=== PATIENT | female | born 1965 | race Caucasian/White ===

== ENCOUNTER 2018-02-07 19:47 | Observation (INO) | payer OTHER, SELFPAY ==
[2018-02-07] MEDS ORDERED: ASPIRIN 81 MG CHEWABLE TABLET ONE (20:17)
[2018-02-07] MEDS ORDERED: FENTANYL CITR 100 MCG/2 ML ONE (20:17)
[2018-02-07] MEDS ORDERED: ONDANSETRON 4 MG/2 ML VIAL ONE (20:17)
[2018-02-07 20:33] LABS: Absolute Lymphocytes (CBC) 2.1 K/uL (0.7-4.9); Absolute Monocytes 0.5 K/uL (0.1-1.3); Absolute Neutrophil 6.7 K/uL (1.8-8.0); Basophils % 0.3 % (0-1.3); Eosinophils % 0.7 % (0-4.4); Hematocrit 41.8 % (36.0-45.0); Lymphocytes % 22.3 % (15.3-44.8); MCH 30.7 pg (27.0-35.0); MCV 91.8 fL (80-100); MPV 8.3 fL (7.6-11.3); Monocytes % 5.3 % (3.3-12.3); RBC Red Blood Cell Count 4.55 M/uL (3.86-4.86)
[2018-02-07 20:43] LABS: Protime INR 1.03
[2018-02-07 20:48] LABS: ALT/SGPT 48 U/L (12-78); AST/SGOT 44 U/L (15-37); Albumin 3.7 g/dL (3.4-5.0); Alkaline Phosphatase 104 U/L (45-117); BUN Blood Urea Nitrogen 15 mg/dL (7-18); Bicarbonate 26 mmol/L (21-32); Bilirubin Direct 0.1 mg/dL (0-0.2); Bilirubin Total 0.5 mg/dL (0.2-1.0); Glucose Level 107 mg/dL (74-106); NT PRO-BNP 169 pg/mL (<125); Potassium 3.1 mmol/L (3.5-5.1); Sodium Level 143 mmol/L (136-145); Troponin (Emerg Dept Use Only) < 0.02 ng/mL (0.0-0.045)
--- NOTE | 2018-02-07 20:53 | EDPHYS ---
Physician Documentation [facility] Name: Audra Limon Age: 52 yrs Sex: Female : 1965 Arrival Date: 02/07/2018 Time: 19:48 Bed 20 Private MD: ED Physician Neeraj Oleary HPI: 02/07 20:11 This 52 yrs old Female presents to ER via Ambulatory with complaints of Chest jr8 Pain. 20:11 The patient or guardian reports chest pain that is located primarily in the substernal jr8 area. Onset: acutely, today, at 18:30. The pain radiates to the right arm, Associated signs and symptoms: Pertinent positives: diaphoresis. The chest pain is described as a pressure. Duration: The patient or guardian reports a single episode. Modifying factors: The symptoms are alleviated by NTG, X3. Severity of pain: At its worst the pain was moderate in the emergency department the pain is unchanged. The patient has not experienced similar symptoms in the past. The patient has not recently seen a physician. Has history of Angina. Usually relieved with her nitroglycerin. Has not had to take any in quite some time. Stated that she has already taken three tonight with this episode. Will help somewhat but not completely relieved and pain comes back soon after . SANE RN: 19:50 LMP N/A - Post-menopause fc Historical: - Allergies: 20:02 PENICILLINS; fc - Home Meds: 20:02 atorvastatin 20 mg oral tab 1 tab once daily [Active]; losartan 50 mg oral tab 1 tab 2 fc times per day [Active]; buspirone 7.5 mg Oral tab 1 tab 2 times per day [Active]; pantoprazole 40 mg oral TbEC 1 tab once daily [Active]; Lasix 40 mg oral tab 1 tab once daily [Active]; metformin 500 mg Oral tab 1 tab 2 times per day [Active]; Vitamin D Oral 5000 unit daily [Active]; aspirin 81 mg Oral TbEC 1 tab once daily [Active]; 20:03 nitroglycerin 0.4 mg SL subl 1 tab as needed [Active]; fc - PMHx: 20:02 Depression; GERD; High Cholesterol; Hypertension; Diabetes - NIDDM; CAD; fc - PSHx: 20:02 Tubal ligation; Bladder suspension; Cholecystectomy; neck surg; fc - Immunization history:: Last tetanus immunization: up to date. - Social history:: Smoking status: Patient uses tobacco products, smokes one-half pack cigarettes per day. - Ebola Screening: : Patient negative for fever greater than or equal to 101.5 degrees Fahrenheit, and additional compatible Ebola Virus Disease symptoms Patient denies exposure to infectious person Patient denies travel to an Ebola-affected area in the 21 days before illness onset. ROS: 20:11 Eyes: Negative for injury, pain, redness, and discharge, ENT: Negative for injury, jr8 pain, and discharge, Neck: Negative for injury, pain, and swelling, Respiratory: Negative for shortness of breath, cough, wheezing, and pleuritic chest pain, Abdomen/GI: Negative for abdominal pain, nausea, vomiting, diarrhea, and constipation, Back: Negative for injury and pain, MS/Extremity: Negative for injury and deformity, Skin: Negative for injury, rash, and discoloration, Neuro: Negative for headache, weakness, numbness, tingling, and seizure. 20:11 Cardiovascular: Positive for chest pain, Negative for edema, orthopnea, palpitations, paroxysmal nocturnal dyspnea. Exam: 20:11 Eyes: Pupils equal round and reactive to light, extra-ocular motions intact. Lids and jr8 lashes normal. Conjunctiva and sclera are non-icteric and not injected. Cornea within normal limits. Periorbital areas with no swelling, redness, or edema. ENT: Nares patent. No nasal discharge, no septal abnormalities noted. Tympanic membranes are normal and external auditory canals are clear. Oropharynx with no redness, swelling, or masses, exudates, or evidence of obstruction, uvula midline. Mucous membranes moist. Neck: Trachea midline, no thyromegaly or masses palpated, and no cervical lymphadenopathy. Supple, full range of motion without nuchal rigidity, or vertebral point tenderness. No Meningismus. Chest/axilla: Normal chest wall appearance and motion. Nontender with no deformity. No lesions are appreciated. Cardiovascular: Regular rate and rhythm with a normal S1 and S2. No gallops, murmurs, or rubs. Normal PMI, no JVD. No pulse deficits. Respiratory: Lungs have equal breath sounds bilaterally, clear to auscultation and percussion. No rales, rhonchi or wheezes noted. No increased work of breathing, no retractions or nasal flaring. Abdomen/GI: Soft, non-tender, with normal bowel sounds. No distension or tympany. No guarding or rebound. No evidence of tenderness throughout. Back: No spinal tenderness. No costovertebral tenderness. Full range of motion. Skin: Warm, dry with normal turgor. Normal color with no rashes, no lesions, and no evidence of cellulitis. MS/ Extremity: Pulses equal, no cyanosis. Neurovascular intact. Full, normal range of motion. Neuro: Awake and alert, GCS 15, oriented to person, place, time, and situation. Cranial nerves II-XII grossly intact. Motor strength 5/5 in all extremities. Sensory grossly intact. Cerebellar exam normal. Normal gait. 20:56 ECG was reviewed by the Attending Physician. jr8 Vital Signs: 19:50 BP 139 / 84; Pulse 72; Resp 18; Temp 98.4(O); Pulse Ox 96% on R/A; Weight 95.25 kg (R); fc Height 5 ft. 2 in. (157.48 cm) (R); Pain 5/10; 20:22 BP 130 / 79; Pulse 72; Resp 15; Pulse Ox 93% on R/A; rv 21:55 BP 118 / 74; Pulse 72; Resp 14; Pulse Ox 92% on R/A; rv 19:50 Body Mass Index 38.41 (95.25 kg, 157.48 cm) fc MDM: 19:57 Patient medically screened. jr8 20:51 HEART Score: History: Moderately Suspicious (1), ECG: Normal (0), Age: > 45 and < 65 jr8 years (1), Risk Factors: > or = 3 Risk factors for atherosclerotic disease (2), [Hypercholesterolemia] [Hypertension] [DM] [+ Family HX] Troponin: < or = 1 x Normal Limit (0). The patient was given aspirin in the Emergency Department. Data reviewed: vital signs, nurses notes, lab test result(s), EKG, radiologic studies, plain films. Data interpreted: Pulse oximetry: on room air is 94 %. Interpretation: acceptable. Counseling: I had a detailed discussion with the patient and/or guardian regarding: the historical points, exam findings, and any diagnostic results supporting the discharge/admit diagnosis, lab results, radiology results, the need for further work-up and treatment in the hospital. Physician consultation: Marisel Rodriguez MD was called at 20:52, was contacted at 20:52, regarding admission, to the telemetry unit. consult, patient's condition, and will see patient. 02/07 20:09 Order name: Basic Metabolic Panel; Complete Time: 20:49 02/07 20:09 Order name: CBC with Diff; Complete Time: 20:43 02/07 20:09 Order name: LFT's; Complete Time: 20:49 02/07 20:09 Order name: Magnesium; Complete Time: 20:49 02/07 20:09 Order name: NT PRO-BNP; Complete Time: 20:49 02/07 20:09 Order name: PT-INR; Complete Time: 20:43 02/07 20:09 Order name: Troponin (emerg Dept Use Only); Complete Time: 20:49 02/07 20:09 Order name: XRAY Chest (1 view); Complete Time: 20:55 02/07 20:09 Order name: EKG; Complete Time: 20:10 02/07 20:09 Order name: Cardiac monitoring; Complete Time: 20:09 02/07 20:09 Order name: EKG - Nurse/Tech; Complete Time: 20:09 02/07 20:09 Order name: IV Saline Lock; Complete Time: 20:10 02/07 20:09 Order name: Labs collected and sent; Complete Time: 20:10 02/07 20:09 Order name: O2 Per Protocol; Complete Time: 20:10 02/07 20:09 Order name: O2 Sat Monitoring; Complete Time: 20:10 EC:56 Rate is 63 beats/min. Rhythm is regular, Normal Sinus Rhythm. QRS [place] is Normal. [place] jr8 interval is normal at 160 msec. QRS interval is normal at 82 msec. QT interval is normal at 429 msec. No Q waves. T waves are Normal. No ST changes noted. Clinical impression: Normal ECG. Interpreted by me. Reviewed by me. Administered Medications: 20:19 Drug: Zofran 4 mg Route: IVP; Site: left antecubital; rv 21:44 Follow up: Response: No adverse reaction rv 20:20 Drug: Aspirin Chewable Tablet 324 mg Route: PO; rv 21:44 Follow up: Response: No adverse reaction rv 20:20 Drug: fentaNYL (PF) 50 mcg Route: IVP; Site: left antecubital; rv 21:44 Follow up: Response: No adverse reaction rv 21:07 Drug: Potassium Chloride 40 mEq Route: PO; rv 21:44 Follow up: Response: No adverse reaction rv 21:07 Drug: Nitroglycerin Ointment 2 % 1 inches Route: Transdermal; Site: anterior chest wall;rv Disposition: 02/08 00:15 Co-signature as Attending Physician, Neeraj Oleary MD. jayne Disposition: 02/07/18 20:52 Hospitalization ordered by Marisel Rodriguez for Observation. Preliminary diagnosis is Chest pain, unspecified. - Bed requested for Telemetry/MedSurg (observation). - Status is Observation. rv - Condition is Stable. - Problem is new. - Symptoms have improved. UTI on Admission? No Signatures: Dispatcher [employer] EDMS Neeraj Oleary MD MD pkTia Howell RN RN Estuardo Dupree PA PA jr8 Festus Siddiqui RN RN rv Corrections: (The following items were deleted from the chart) 02/07 21:27 20:52 Hospitalization Ordered by Marisel Rodriguez MD for Observation. Preliminary jr8 diagnosis is Chest pain, unspecified. Bed requested for Telemetry/MedSurg (observation). Status is Observation. Condition is Stable. Problem is new. Symptoms have improved. UTI on Admission? No. jr8 22:14 21:27 02/07/2018 20:52 Hospitalization Ordered by Marisel Rodriguez MD for Observation. rv Preliminary diagnosis is Chest pain, unspecified. Bed requested for Telemetry/MedSurg (observation). Status is Observation. Condition is Stable. Problem is new. Symptoms have improved. UTI on Admission? No. jr8
--- NOTE | 2018-02-07 20:53 | ER ---
Nurse's Notes [facility] Name: Audra Limon Age: 52 yrs Sex: Female : 1965 Arrival Date: 02/07/2018 Time: 19:48 Bed 20 Private MD: Diagnosis: Chest pain, unspecified Presentation: 02/07 19:50 Presenting complaint: Patient states: that she is having right sided chest pain with fc some shortness of breath. Denies any nausea or vomiting. also is on Cipro for UTI. Transition of care: patient was not received from another setting of care. Onset of symptoms was February 07, 2018 at 19:30. Risk Assessment: Do you want to hurt yourself or someone else? Patient reports no desire to harm self or others. Initial Sepsis Screen: Does the patient meet any 2 criteria? No. Patient's initial sepsis screen is negative. Does the patient have a suspected source of infection? No. Patient's initial sepsis screen is negative. Care prior to arrival: Medication(s) given: Nitroglycerin, 0.4 mg SL x 3. 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: 19:50 LMP N/A - Post-menopause fc Historical: - Allergies: 20:02 PENICILLINS; fc - Home Meds: 20:02 atorvastatin 20 mg oral tab 1 tab once daily [Active]; losartan 50 mg oral tab 1 tab 2 fc times per day [Active]; buspirone 7.5 mg Oral tab 1 tab 2 times per day [Active]; pantoprazole 40 mg oral TbEC 1 tab once daily [Active]; Lasix 40 mg oral tab 1 tab once daily [Active]; metformin 500 mg Oral tab 1 tab 2 times per day [Active]; Vitamin D Oral 5000 unit daily [Active]; aspirin 81 mg Oral TbEC 1 tab once daily [Active]; 20:03 nitroglycerin 0.4 mg SL subl 1 tab as needed [Active]; fc - PMHx: 20:02 Depression; GERD; High Cholesterol; Hypertension; Diabetes - NIDDM; CAD; fc - PSHx: 20:02 Tubal ligation; Bladder suspension; Cholecystectomy; neck surg; fc - Immunization history:: Last tetanus immunization: up to date. - Social history:: Smoking status: Patient uses tobacco products, smokes one-half pack cigarettes per day. - Ebola Screening: : Patient negative for fever greater than or equal to 101.5 degrees Fahrenheit, and additional compatible Ebola Virus Disease symptoms Patient denies exposure to infectious person Patient denies travel to an Ebola-affected area in the 21 days before illness onset. Screenin:50 Abuse screen: Denies threats or abuse. Nutritional screening: No deficits noted. fc Tuberculosis screening: No symptoms or risk factors identified. Fall Risk None identified. Assessment: 20:20 Also complains of no other symptoms. General: Appears in no apparent distress. rv comfortable, Behavior is calm, cooperative. Pain: Pain radiates to chest Pain began 2 hours ago. Neuro: Level of Consciousness is awake, alert, obeys commands, Oriented to person, place, time, situation. Cardiovascular: Capillary refill < 3 seconds. Respiratory: Airway is patent. GI: No signs and/or symptoms were reported involving the gastrointestinal system. : No signs and/or symptoms were reported regarding the genitourinary system. EENT: No signs and/or symptoms were reported regarding the EENT system. Derm: Skin is intact. 21:55 Reassessment: Patient appears in no apparent distress at this time. Patient and/or rv family updated on plan of care and expected duration. Pain level reassessed. Patient is alert, oriented x 3, equal unlabored respirations, skin warm/dry/pink. AWAITING AVAILABILITY OF ROOM/NURSE FROM THE FLOOR. Vital Signs: 19:50 BP 139 / 84; Pulse 72; Resp 18; Temp 98.4(O); Pulse Ox 96% on R/A; Weight 95.25 kg (R); fc Height 5 ft. 2 in. (157.48 cm) (R); Pain 5/10; 20:22 BP 130 / 79; Pulse 72; Resp 15; Pulse Ox 93% on R/A; rv 21:55 BP 118 / 74; Pulse 72; Resp 14; Pulse Ox 92% on R/A; rv 19:50 Body Mass Index 38.41 (95.25 kg, 157.48 cm) ED Course: 19:48 Patient arrived in ED. es 19:50 Arm band placed on Patient placed in an exam room, on a stretcher. fc 19:50 Patient has correct armband on for positive identification. Placed in gown. Bed in low fc position. Call light in reach. monitor tech on. Pulse ox on. NIBP on. 19:50 No provider procedures requiring assistance completed. Patient maintains SpO2 fc saturation greater than 95% on room air. 19:57 [facility] jr8 19:57 Neeraj Oleary MD is Attending Physician. jr8 19:57 Triage completed. fc 20:00 Initial lab(s) drawn, by me, sent to lab. Inserted saline lock: 20 gauge in left bb antecubital area, using aseptic technique. Blood collected. 20:37 X-ray completed. Portable x-ray completed in exam room. Patient tolerated procedure ml well. 20:38 XRAY Chest (1 view) In Process Unspecified. EDMS 20:52 Marisel Rodriguez MD is Hospitalizing Provider. jr8 22:13 Patient admitted, IV remains in place. intact. rv Administered Medications: 20:19 Drug: Zofran 4 mg Route: IVP; Site: left antecubital; rv 21:44 Follow up: Response: No adverse reaction rv 20:20 Drug: Aspirin Chewable Tablet 324 mg Route: PO; rv 21:44 Follow up: Response: No adverse reaction rv 20:20 Drug: fentaNYL (PF) 50 mcg Route: IVP; Site: left antecubital; rv 21:44 Follow up: Response: No adverse reaction rv 21:07 Drug: Potassium Chloride 40 mEq Route: PO; rv 21:44 Follow up: Response: No adverse reaction rv 21:07 Drug: Nitroglycerin Ointment 2 % 1 inches Route: Transdermal; Site: anterior chest wall;rv Outcome: 20:52 Decision to Hospitalize by Provider. jr8 22:13 Admitted to Tele accompanied by nurse, via wheelchair, room 415, with chart, Report rv called to KELLY 22:13 Condition: good 22:13 Instructed on the need for admit. 22:14 Patient left the ED. rv Signatures: Dispatcher [employer] EDShruti Juarez Felicia, RN RN Nicole Meneses RN RN Lovely Mccormack Josh, PA PA jr8 Festus Siddiqui RN RN rv
--- NOTE | 2018-02-07 20:54 | RAD REPORT ---
EXAM DESCRIPTION: LANChest Single View02/07/2018 8:39 pm CLINICAL HISTORY: CHEST PAIN COMPARISON: Chest Single View dated 12/07/2016; FINDINGS: The lungs appear clear of acute infiltrate. The heart is borderline enlarged IMPRESSION: No acute abnormalities displayed
[2018-02-07] MEDS ORDERED: POTASSIUM CL SA 10 MEQ TAB PO ONE (21:02)
[2018-02-07] MEDS ORDERED: NITROGLYCERIN 1 GM PKT TD ONE (21:08)
--- NOTE | 2018-02-07 21:43 | P.HP ---
Certification for Inpatient Patient admitted to: Observation With expected LOS: <2 Midnights Practitioner: I am a practitioner with admitting privileges, knowledge of patient current condition, hospital course, and medical plan of care. Services: Services provided to patient in accordance with Admission requirements found in Title 42 Section 412.3 of the Code of Federal Regulations Patient History Date of Service: 02/07/18 Reason for admission: Chest pain History of Present Illness: Md Limon is a 52-year-old woman with history of diabetes mellitus types 2, hypertension, dyslipidemia, tobacco abuse, strong family history of coronary artery disease, who came to ER complaining of chest pain. The pain is located on his right side of the chest, radiating to the right arm. The pain started around 6:30 p.m., she took 3 nitro sublingual without relief. Patient denied any nausea, vomiting, shortness of breath or diaphoresis associated with the pain. Intensity of the pain 7/10. EKG shows no ST-T abnormalities, initial troponin I is negative. Chest pain improved after receive pain medication. Allergies Penicillins Allergy (Unknown, Verified 08/21/11 06:25) UNKNOWN Home medications list reviewed: Yes Home Medications: Atenolol 50 mg PO BID 01/09/13 Furosemide [Lasix*] 1 tab PO DAILY 01/09/13 Aspirin [Aspirin EC 325 MG] 325 mg PO DAILY #30 tablet. 12/08/16 Atorvastatin Calcium [Lipitor*] 20 mg PO BID 12/08/16 Losartan Potassium 50 mg PO BID 12/08/16 Nitroglycerin [Nitrostat] 0.4 mg SL [id number] PRN #1 btl 12/08/16 Pantoprazole Sodium [Protonix] 40 mg PO BID 12/08/16 Sertraline HCl 100 mg PO BEDTIME 12/08/16 Sulfamethoxazole/Trimethoprim [Bactrim Ds Tablet] 1 each PO DAILY #7 tablet 09/21 - Past Medical/Surgical History Diabetic: No -: HTN -: GERD -: peripheral edema -: childhood asthma -: bilateral tubal ligation -: bladder suspension -: 2 discs in neck with plates -: cholecystectomy -: right elbow surgery -: right elbow sx - Family History Father -: Heart disease, Hypertension - Social History Smoking Status: Current every day smoker Counseled patient to stop smoking for: less than 10 minutes Smoking therapy provided: No Patient receptive to therapy: No Alcohol use: Yes CD- Drugs: No Caffeine use: Yes Place of Residence: Home Review of Systems 10-point ROS is otherwise unremarkable Physical Examination - Physical Exam General: Alert, In no apparent distress HEENT: Atraumatic, PERRLA, Mucous membr. moist/pink, EOMI, Sclerae nonicteric Neck: Supple, 2+ carotid pulse no bruit, No LAD, Without JVD or thyroid abnormality Respiratory: Clear to auscultation bilaterally, Normal air movement Cardiovascular: Regular rate/rhythm, Normal S1 S2 Gastrointestinal: Normal bowel sounds, No tenderness Musculoskeletal: No tenderness Integumentary: No rashes Neurological: Normal speech, Normal strength at 5/5 x4 extr, Normal tone, Normal affect Lymphatics: No axilla or inguinal lymphadenopathy - Studies Laboratory Data (last 24 hrs) 02/07/18 20:00: PT 12.2, INR 1.03 02/07/18 20:00: WBC 9.4, Hgb 14.0, Hct 41.8, Plt Count 209 02/07/18 20:00: Sodium 143, Potassium 3.1 L, BUN 15, Creatinine 0.90, Glucose 107 H, Magnesium 2.0, Total Bilirubin 0.5, AST 44 H, ALT 48, Alkaline Phosphatase 104 Assessment and Plan - Problems (Diagnosis) (1) Diabetes mellitus Current Visit: Yes Status: Acute Qualifiers: Diabetes mellitus type: type 2 Diabetes mellitus half-way insulin use: without terminal operations supervisor use Diabetes mellitus complication status: with unspecified complications Qualified Code(s): E11.8 - Type 2 diabetes mellitus with unspecified complications (2) HTN (hypertension) Current Visit: Yes Status: Acute Qualifiers: Hypertension type: essential hypertension Qualified Code(s): I10 - Essential (primary) hypertension (3) Chest pain Current Visit: Yes Status: Acute Qualifiers: Chest pain type: unspecified Qualified Code(s): R07.9 - Chest pain, unspecified (4) Dyslipidemia Current Visit: Yes Status: Acute (5) Tobacco abuse Current Visit: Yes Status: Acute - Plan The patient will be admitted to the hospital under observation due to chest pain in order to rule out acute coronary syndrome. EKG shows no acute abnormality, initial troponin I is negative. Will order serial EKG and cardiac enzymes monitored. Will order echo in the morning, consult slicing machine operator for evaluation recommendation. - Advance Directives Does patient have a Living Will: No Does patient have a Durable POA for Healthcare: No - Code Status/Comfort Care Code Status Assessed: Yes Code Status: Full Code
[2018-02-07] MEDS: TRAMADOL HCL 50 MG TAB PO PRN (23:59)
[2018-02-08 00:08] LABS: Absolute Lymphocytes (CBC) 2.9 K/uL (0.7-4.9); Absolute Monocytes 0.4 K/uL (0.1-1.3); Absolute Neutrophil 6.1 K/uL (1.8-8.0); Basophils % 0.5 % (0-1.3); Eosinophils % 0.8 % (0-4.4); Lymphocytes % 30.8 % (15.3-44.8); MCV 92.4 fL (80-100); MPV 8.5 fL (7.6-11.3); Monocytes % 4.4 % (3.3-12.3); RBC Red Blood Cell Count 4.44 M/uL (3.86-4.86)
[2018-02-08 00:28] LABS: BUN Blood Urea Nitrogen 15 mg/dL (7-18); Bicarbonate 31 mmol/L (21-32); Glucose Level 94 mg/dL (74-106); Potassium 4.3 mmol/L (3.5-5.1); Sodium Level 143 mmol/L (136-145); Troponin I < 0.02 ng/mL (0.0-0.045)
[2018-02-08 01:07] VITALS: BMI 38.4
[2018-02-08] MEDS: TRAMADOL HCL 50 MG TAB PO PRN (05:59)
[2018-02-08] MEDS: INSULIN -REGULAR HUMAN 50 UNIT/0.5 ML ML SQ SCH ×3 (06:00→12:00)
--- NOTE | 2018-02-08 07:43 | EKG ---
Test Date: 2018-02-07 Test Time: 19:51:30 Facility Service Associate: MECHELLE MEASUREMENT RESULTS: Intervals: Rate: 70 PA: 150 QRSD: 94 QT: 378 QTc: 408 [place]: P: 16 PA: 150 QRS: -27 T: -26 INTERPRETIVE STATEMENTS: Normal sinus rhythm Normal ECG Compared to ECG 12/07/2016 20:38:23 No significant changes Electronically Signed On 02-08-18 07:43:15 CDT by Vin Dodd
[2018-02-08] MEDS ORDERED: PNEUMOCOCCAL VACCINE 0.5 ML IMVAC ONE (08:00)
[2018-02-08] MEDS ORDERED: ASPIRIN EC 81 MG TAB PO SCH (09:00)
[2018-02-08] MEDS ORDERED: ENOXAPARIN 40 MG/0.4 ML SQ SCH (09:00)
[2018-02-08 09:17] LABS: Urine Appearance CLEAR; Urine Bilirubin NEGATIVE (NEG); Urine Blood NEGATIVE (NEG); Urine Color DK YELLOW; Urine Glucose NEGATIVE (NEG); Urine Protein NEGATIVE (NEG); Urine Specific Gravity >=1.030 (1.005-1.030); Urine Urobilinogen 0.2 mg/dL (0.2-1.0)
[2018-02-08 09:29] LABS: Urine Microscopic Reflex ORDER UMIC
[2018-02-08 10:24] LABS: Urine Bacteria 20-50 /HPF (<20); Urine Culture Reflex Order REFLEXED; Urine RBC NONE SEEN /HPF (NONE SEEN)
[2018-02-08] MEDS ORDERED: NA CHLORIDE 0.9% 1,000 ML ONE (12:16)
--- NOTE | 2018-02-08 12:22 | EKG ---
Test Date: 2018-02-07 Test Time: 20:49:42 Special Population Paraprofessional: MEASUREMENT RESULTS: Intervals: Rate: 63 LA: 160 QRSD: 82 QT: 420 QTc: 429 [place]: P: 46 LA: 160 QRS: -17 T: 19 INTERPRETIVE STATEMENTS: Normal sinus rhythm Normal ECG Compared to ECG 02/07/2018 19:51:30 No significant changes Electronically Signed On 02-08-18 12:19:12 CDT by Cyril Castelan
[2018-02-08] MEDS ORDERED: HEPA 1000U/500MLS 1,000 UNIT/500 ML BAG IV ONE (12:23)
[2018-02-08] MEDS ORDERED: LIDOCAINE 1% MPF 2 ML AMPULE ONE (12:23)
[2018-02-08] MEDS ORDERED: ATROPINE SULF 1 MG/10 ML SYR IV ONE (12:48)
[2018-02-08] MEDS ORDERED: MIDAZOLAM HCL 2 MG/2 ML INJ ONE ×2 (12:48→12:52)
[2018-02-08] MEDS ORDERED: NA CHLORIDE 0.9% 0 ML ONE (12:48)
[2018-02-08] MEDS ORDERED: FENTANYL CITR 100 MCG/2 ML ONE (12:48)
--- NOTE | 2018-02-08 12:58 | ECHO ---
HEIGHT: 5 ft 2 in WEIGHT: 210 lb 0 oz DATE OF STUDY: REFER DR: Marisel Oswald MD 2-DIMENSIONAL: YES M.MODE: YES DOPPLER: YES COLOR FLOW: YES TDS: NO PORTABLE: NO DEFINITY: NO BUBBLE STUDY: NO DIAGNOSIS: CHEST PAIN CARDIAC HISTORY: CATHERIZATION: NO SURGERY: NO PROSTHETIC VALVE: NO PACEMAKER: NO MEASUREMENTS (cm) DIASTOLIC (NORMALS) SYSTOLIC (NORMALS) IVSd 1.2 (0.6-1.2) LA Diam 3.0 (1.9-4.0) LVEF 52% LVIDd 3.9 (3.5-5.7) LVIDs 2.8 (2.0-3.5) %FS 26% LVPWd 1.0 (0.6-1.2) Ao Diam 2.7 (2.0-3.7) 2 DIMENSIONAL ASSESSMENT: RIGHT ATRIUM: NORMAL LEFT ATRIUM: NORMAL RIGHT VENTRICLE: NORMAL LEFT VENTRICLE: NORMAL TRICUSPID VALVE: NORMAL MITRAL VALVE: NORMAL PULMONIC VALVE: NORMAL AORTIC VALVE: NORMAL PERICARDIAL EFFUSION: NONE AORTIC ROOT: NORMAL LEFT VENTRICULAR WALL MOTION: NORMAL. DOPPLER/COLOR FLOW: NORMAL. COMMENTS: NORMAL LEFT VENTRICULAR SIZE AND FUNCTION. NO WALL MOTION ABNORMALITY. NO EFFUSION. TECHNOLOGIST: MERCEDES ALARCON
--- NOTE | 2018-02-08 13:25 | P.SSS ---
Patient History Date of Service: 02/08/18 Reason for admission: Chest pain History of Present Illness: Md Limon is a 52-year-old woman with history of diabetes mellitus types 2, hypertension, dyslipidemia, tobacco abuse, strong family history of coronary artery disease, who came to ER complaining of chest pain. The pain is located on his right side of the chest, radiating to the right arm. The pain started around 6:30 p.m., she took 3 nitro sublingual without relief. Patient denied any nausea, vomiting, shortness of breath or diaphoresis associated with the pain. Intensity of the pain 12/14. EKG shows no ST-T abnormalities, initial troponin I is negative. Chest pain improved after receive pain medication. Allergies Penicillins Allergy (Unknown, Verified 02/08/18 03:44) UNKNOWN Home Medications: Furosemide [Lasix*] 1 tab PO DAILY 01/09/13 Atorvastatin Calcium [Lipitor*] 20 mg PO BEDTIME 12/08/16 Losartan Potassium 50 mg PO BID 12/08/16 Nitroglycerin [Nitrostat] 0.4 mg SL [id number] PRN #1 btl 12/08/16 Pantoprazole Sodium [Protonix] 40 mg PO DAILY 12/08/16 Aspirin [Aspirin EC 81 MG] 1 tab PO DAILY 02/08/18 Buspirone HCl 7.5 mg PO BID 02/08/18 Cholecalciferol (Vitamin D3) [Vitamin D 5,000 IU Cap*] 1 cap PO DAILY 02/08/18 Metformin ER [Glucophage ER] 500 mg PO BID 02/08/18 - Past Medical/Surgical History Has patient received pneumonia vaccine in the past: No Diabetic: Yes -: HTN -: GERD -: peripheral edema -: childhood asthma -: bilateral tubal ligation -: bladder suspension -: 2 discs in neck with plates -: cholecystectomy -: right elbow surgery -: right elbow sx - Family History Father -: Heart disease, Hypertension Mother -: Diabetes - Social History Smoking Status: Current every day smoker Alcohol use: Yes CD- Drugs: No Caffeine use: Yes Place of Residence: Home Review of Systems 10-point ROS is otherwise unremarkable Physical Examination - Vital Signs Temperature: 97.1 F Blood Pressure: 112/70 Pulse: 66 Respirations: 18 Pulse Ox (%): 95 - Physical Exam General: Alert, In no apparent distress HEENT: Atraumatic, PERRLA, Mucous membr. moist/pink, EOMI, Sclerae nonicteric Neck: Supple, 2+ carotid pulse no bruit, No LAD, Without JVD or thyroid abnormality Respiratory: Clear to auscultation bilaterally, Normal air movement Cardiovascular: Regular rate/rhythm, Normal S1 S2 Gastrointestinal: Normal bowel sounds, No tenderness Musculoskeletal: No tenderness Integumentary: No rashes Neurological: Normal gait, Normal speech, Normal strength at 5/5 x4 extr, Normal tone, Normal affect Lymphatics: No axilla or inguinal lymphadenopathy - Studies Laboratory Data (last 24 hrs) 02/07/18 20:00: PT 12.2, INR 1.03 02/07/18 20:00: WBC 9.4, Hgb 14.0, Hct 41.8, Plt Count 209 02/07/18 20:00: Sodium 143, Potassium 3.1 L, BUN 15, Creatinine 0.90, Glucose 107 H, Magnesium 2.0, Total Bilirubin 0.5, AST 44 H, ALT 48, Alkaline Phosphatase 104 - Diagnosis (Problem(s)) (1) Chest pain Current Visit: Yes Status: Acute Qualifiers: Chest pain type: unspecified Qualified Code(s): R07.9 - Chest pain, unspecified (2) Diabetes mellitus Current Visit: Yes Status: Chronic Qualifiers: Diabetes mellitus type: type 2 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: without termite control service representative use Diabetes mellitus complication status: with unspecified complications Qualified Code(s): E11.8 - Type 2 diabetes mellitus with unspecified complications (3) Dyslipidemia Current Visit: Yes Status: Chronic (4) HTN (hypertension) Current Visit: Yes Status: Chronic Qualifiers: Hypertension type: essential hypertension Qualified Code(s): I10 - Essential (primary) hypertension (5) Tobacco abuse Current Visit: Yes Status: Chronic Treatment Summary: Overall during the hospital stay patient remained stable Patient was initially admitted to the hospital for chest pain. Initial troponin x2 was negative EKG was within normal limits due to strong family history and patient's past medical history of diabetes and a decision was made by linux administrator to have a heart catheterization done for patient while here in the hospital. Patient had a heart catheterization done here in the hospital which was negative for any coronary artery disease and no interventions were needed. Patient was observed for another 2 hr postprocedure and then was discharged home under stable condition. Patient was asked to follow up with primary care provider in about 1-2 days post discharge. Patient was educated extensively on diet and exercise and have adequate control of her diabetes. Patient demonstrated understanding and thus was discharged home. - Disposition Disposition: ROUTINE DISCHARGE
--- NOTE | 2018-02-08 15:55 | CON ---
Date of Consultation: 02/08/[address] Gillette's service on 02/07/2018. I saw the patient on 02/08/2018. Reason For Consultation: Unstable angina. History Of Present Illness: Ms. Limon is a 52-year-old woman. She has many risk factors for hea rt disease including hypertension, diabetes, dyslipidemia, family history of heart disease, tobacco a buse. Also, has a history of gastroesophageal reflux disease, depression. She came in with substern al chest pressure that radiated to both arms, more on the right than the left with some nausea and di aphoresis and shortness of breath. Denied PND, orthopnea, pedal edema, palpitations, or syncope. Th e patient is very concerned that she has a heart disease because of her risk factors. Allergies: SHE IS ALLERGIC TO PENICILLIN. Review of Systems: Negative. Social History: Positive for tobacco. Family History: Positive for heart disease. Medications: At home include aspirin, Lipitor, Lasix, losartan, metformin, and Protonix. Physical Examination: Vital Signs: Stable. She was afebrile. HEENT: Negative. Neck: Supple with no bruit. Chest: Clear. Cardiac: Revealed a regular rhythm and rate with an S4 gallops. Abdomen: Benign. Extremities: Revealed no clubbing, cyanosis, or edema. Diagnostic Data: All within normal limits. Impression And Plan: Unstable angina. Symptoms are typical for unstable angina. The patient has mu ltiple cardiac risk factors including hypertension, diabetes, dyslipidemia, family history of heart d isease, smoking. The last time she had cardiac testing was 3 years ago with a stress test, which was negative. The patient is hesitant to undergo a stress test. She wants to know for sure if she has any cardiac issue and tend to concur with. I will schedule for a heart catheterization today. We wi ll define her coronary anatomy and intervene if we have to. She understands the risk and the benefit of the procedure and she agrees to proceed. DAVID/MICHELET Voice ID: [id number] Report ID: [id number]
[2018-02-08 17:11] VITALS: BP 117/70; TEMP 96.7; O2SAT 100
--- NOTE | 2018-02-09 00:07 | OP ---
Date of Procedure: 02/08/2018 Surgeon: Cyril Castelan MD Director Dermatology: Karen Marquis. The patient admitted to Dr. Gillette on 02/07/2018 with unstable angina symptoms. The patient seen and consulted on 02/08/2018. Brought to the micro lab analyst as an inpatient for unstable angina symptoms. Mult iple risk factors including tobacco use, hypertension, diabetes, dyslipidemia, family history of hear t disease. Prepped and draped in the routine sterile fashion. Given 4 mg of Versed for IV sedation. A 6-[place] sheath introduced in the right common femoral artery. Angio-Seal used to close the case . A 6-[place] Armida catheter used for the heart catheterization. The patient was found to have per fectly normal coronaries. There were no complications. Blood Loss: 5 cc. Postoperative Diagnoses: Chest pain, normal coronary arteries. Plan: Plan is for medical therapy. Conscious Sedation: 30 minutes. DAVID/MICHELET Voice ID: [id number] Report ID: [id number]
== END 2018-02-08 17:45 | disposition home or self-care (01) ==
LOC: ER 19:47 → ERHOLD 21:00 → 4TH 22:05
PROVIDERS: ADMIT Internal Medicine; ATTEND Internal Medicine
PROC: 4A023N7 Measurement of Cardiac Sampling and Pressure, Left Heart, Percutaneous Approach (ICD-10-PCS; principal; 2018-02-08)
PROC: B201YZZ Plain Radiography of Multiple Coronary Arteries using Other Contrast (ICD-10-PCS; 2018-02-08)
PROC: B205YZZ Plain Radiography of Left Heart using Other Contrast (ICD-10-PCS; 2018-02-08)
DX: R07.9 Chest pain, unspecified (principal); E11.9 Type 2 diabetes mellitus without complications; I10 Essential (primary) hypertension; E78.5 Hyperlipidemia, unspecified; F17.210 Nicotine dependence, cigarettes, uncomplicated; Z82.49 Family history of ischemic heart disease and other diseases of the circulatory system; Z88.0 Allergy status to penicillin
CPT/HCPCS: 36415; 71045; 80048; 80061; 80076; 81003; 81015; 82962; 83036; 83735; 83880; 84484; 85025; 85610; 87086; 87088; 93005; 93306; 93454; 93455; 96374; 96375; 99285; C1760; C1893; G0378; J0583; J2001; J2250; J2405; J3010; J7030

== ENCOUNTER 2019-01-07 14:34 | Emergency (ER) | payer OTHER ==
[2019-01-07 15:18] LABS: Urine Blood NEGATIVE (NEG); Urine Glucose NEGATIVE (NEG); Urine Protein NEGATIVE (NEG); Urine Specific Gravity 1.015 (1.005-1.030); Urine pH 6.5 (5.0-7.0)
[2019-01-07] MEDS ORDERED: FENTANYL CITR 100 MCG/2 ML ONE (15:25)
[2019-01-07] MEDS ORDERED: NA CHLORIDE 0.9% 1,000 ML ONE (15:25)
[2019-01-07] MEDS ORDERED: Levofloxacin500mg IV 500 MG/100 ML BAG IV ONE (15:25)
[2019-01-07 15:51] LABS: Absolute Lymphocytes (CBC) 2.4 K/uL (0.7-4.9); Basophils % 0.8 % (0-1.3); Lymphocytes % 34.4 % (15.3-44.8); MPV 8.6 fL (7.6-11.3); RBC Red Blood Cell Count 4.58 M/uL (3.86-4.86)
[2019-01-07 15:59] LABS: Protime INR 0.93
[2019-01-07 16:13] LABS: ALT/SGPT 28 U/L (12-78); AST/SGOT 13 U/L (15-37); Albumin 3.7 g/dL (3.4-5.0); Alkaline Phosphatase 108 U/L (45-117); BUN Blood Urea Nitrogen 19 mg/dL (7-18); Bicarbonate 29 mmol/L (21-32); Bilirubin Direct 0.1 mg/dL (0-0.2); Bilirubin Total 0.4 mg/dL (0.2-1.0); Glucose Level 92 mg/dL (74-106); Magnesium 2.2 mg/dL (1.8-2.4); NT PRO-BNP 218 pg/mL (<125); Potassium 3.6 mmol/L (3.5-5.1); Sodium Level 142 mmol/L (136-145); Troponin (Emerg Dept Use Only) < 0.02 ng/mL (0.0-0.045)
[2019-01-07] MEDS ORDERED: MEPERIDINE HCL 25 MG/0.5 ML ONE ×2 (16:24→16:26)
--- NOTE | 2019-01-07 17:53 | RAD REPORT ---
EXAM DESCRIPTION: CT - Abdomen Pelvis W Contrast - 01/07/2019 5:29 pm CLINICAL HISTORY: Abdominal pain. COMPARISON: 2018 CT scan TECHNIQUE: Computed axial tomography of the abdomen and pelvis was obtained. 100 cc Isovue-300 is ad ministered intravenously. Oral contrast was given. All CT scans are performed using dose optimization technique as appropriate and may include automated exposure control or mA/KV adjustment according to patient size. FINDINGS: Cholecystectomy Small hepatic cyst Spleen, pancreas, adrenals and kidneys appear unremarkable. An abnormal appendix is not noted. There is no evidence of diverticulitis 6 centimeter fluid collection within the cul-de-sac Heterotopic bone formation left hip A couple of borderline dilated loops of jejunum IMPRESSION: 6 centimeter fluid collection within the cul-de-sac. It is uncertain if this represents loculated ascites or an adnexal mass. Ultrasound recommended A couple of borderline dilated loops of jejunum may indicate an ileus
--- NOTE | 2019-01-07 17:54 | RAD REPORT ---
EXAM DESCRIPTION: Theresa Single View01/07/2019 3:43 pm CLINICAL HISTORY: Chest pain COMPARISON: February 2018 FINDINGS: The lungs appear clear of acute infiltrate. The heart is normal size IMPRESSION: No acute abnormalities displayed
[2019-01-07] MEDS ORDERED: SIMETHICONE 80 MG TAB ONE (18:18)
[2019-01-07] MEDS ORDERED: DIAZEPAM 5 MG TABLET ONE (18:21)
[2019-01-07] MEDS ORDERED: METHOCARBAMOL 1,000 MG/10 ML VIAL IV ONE (20:05)
[2019-01-07] MEDS ORDERED: NA CHLORIDE 0.9% 100 ML IV ONE (20:05)
[2019-01-07] MEDS ORDERED: dexAMETHasone 10 MG/ML VIAL ONE (20:05)
[2019-01-07] MEDS ORDERED: KETOROLAC 30 MG/ML INJ ONE (20:05)
--- NOTE | 2019-01-07 20:05 | RAD REPORT ---
EXAM DESCRIPTION: US - Transvaginal Study Probe - 01/07/2019 7:48 pm CLINICAL HISTORY: Abdominal pain COMPARISON: CT abdomen January 07, 2019 FINDINGS: The uterus measures 6 x 3 x 4 centimeters. A 2 centimeter hypoechoic area within the uteri ne fundus may represent fibroid. The endometrial stripe was not well visualized. The right ovary is normal in size and echotexture. Left ovary is normal in size and echotexture. 6.8 centimeter cystic structure is present within the left adnexal extending into the cul-de-sac abut ting the left ovary. It contains a small echogenic nodule. No free fluid IMPRESSION: 6.8 centimeters cystic structure within the left adnexa extending into the left cul-de-s ac may represent an ovarian cyst adenoma or ovarian/paraovarian cyst containing a small amount of hem orrhage. It is recommended that the patient have a followup ultrasound in Six weeks for re-evaluation. Alternatively an MRI could be obtained
--- NOTE | 2019-01-07 20:29 | ER ---
Nurse's Notes [facility] Name: Audra Limon Age: 53 yrs Sex: Female : 1965 Arrival Date: 01/07/2019 Time: 14:38 Bed 15 Private MD: Diagnosis: Diarrhea, unspecified;Pain in left hip;Pain localized to other parts of lower abdomen Presentation: 01/07 14:39 Presenting complaint: Patient states: i was raking on the yard and after which my L hj lower back, L hip area is hurting and it moves to my groin area; pain is 9/10; denies N/V; denies burning urination;. Transition of care: patient was not received from another setting of care. Onset of symptoms was January 07, 2019. Risk Assessment: Do you want to hurt yourself or someone else? Patient reports no desire to harm self or others. Initial Sepsis Screen: Does the patient meet any 2 criteria? No. Patient's initial sepsis screen is negative. Does the patient have a suspected source of infection? No. Patient's initial sepsis screen is negative. Care prior to arrival: None. 14:39 Method Of Arrival: Ambulatory 14:39 Acuity: SUJATA 3 hj Historical: - Allergies: 14:41 PENICILLINS; hj - PMHx: 14:41 CAD; Depression; Diabetes - NIDDM; GERD; High Cholesterol; Hypertension; hj - PSHx: 14:41 Tubal ligation; Bladder suspension; Cholecystectomy; neck surg; hj Screenin:17 Abuse screen: Denies threats or abuse. Denies injuries from another. Nutritional sg screening: No deficits noted. Tuberculosis screening: No symptoms or risk factors identified. Never had TB. Fall Risk None identified. Assessment: 16:17 Reassessment: Patient appears in no apparent distress at this time. Patient and/or sg family updated on plan of care and expected duration. Pain level reassessed. Patient is alert, oriented x 3, equal unlabored respirations, skin warm/dry/pink. 19:15 General: Appears in no apparent distress. comfortable, Behavior is calm, cooperative, rr5 appropriate for age. Pain: Complains of pain in back Pain radiates to groin Pain Quality of pain is described as aching, Pain began gradually, Is intermittent. Neuro: Level of Consciousness is awake, alert, obeys commands, Oriented to person, place, time, situation, Appropriate for age. Cardiovascular: Capillary refill < 3 seconds Patient's skin is warm and dry. Respiratory: Airway is patent Respiratory effort is even, unlabored. GI: Abdomen is round Reports had ileus. : No signs and/or symptoms were reported regarding the genitourinary system. EENT: No signs and/or symptoms were reported regarding the EENT system. Derm: Skin is intact, Skin temperature is warm. Musculoskeletal: Circulation, motion, and sensation intact. Capillary refill < 3 seconds. 19:24 Reassessment: Patient appears in no apparent distress at this time. ultrasound staff at rr5 bedside performing trans vaginal ultrasound. 20:00 Reassessment: complaints of severe back pain. ED provider aware with order made and rr5 carried out. Pain: Complains of pain in back Pain currently is 10 out of 10 on a pain scale. 20:40 Reassessment: Patient appears in no apparent distress at this time. Patient is alert, rr5 oriented x 3, equal unlabored respirations, skin warm/dry/pink. still complaining of pain. 21:55 Reassessment: Patient appears in no apparent distress at this time. Patient and/or rr5 family updated on plan of care and expected duration. Pain level reassessed. Patient is alert, oriented x 3, equal unlabored respirations, skin warm/dry/pink. discharge instruction given and explained without complaints made. Patient states feeling better. Patient states symptoms have improved. Vital Signs: 14:41 BP 195 / 100; Pulse 77; Resp 18; Temp 98.3(TE); Pulse Ox 98% on R/A; Weight 95.25 kg; hj Height 5 ft. 2 in. (157.48 cm); Pain 9/10; 16:31 BP 172 / 89; Pulse 70; Resp 17; Pulse Ox 98% on R/A; sg 18:00 BP 162 / 92; Pulse 76; Resp 17; Pulse Ox 99% on R/A; sg 19:00 BP 160 / 90; Pulse 75; Resp 17; Temp 98.1; Pulse Ox 99% ; rr5 20:00 BP 188 / 101; Pulse 81; Resp 19; Pulse Ox 100% ; Pain 10/10; rr5 21:25 BP 166 / 108; Pulse 85; Resp 17; Pulse Ox 99% ; Pain 9/10; rr5 21:55 BP 171 / 98; Pulse 80; Resp 17; Pulse Ox 100% ; Pain 4/10; rr5 14:41 Body Mass Index 38.41 (95.25 kg, 157.48 cm) hj 21:55 due HTN medication taken by the patient 2130H. ED provider aware. rr5 ED Course: 14:38 Patient arrived in ED. mr 14:41 Triage completed. hj 14:41 Arm band placed on right wrist. hj 15:07 Nanda Muñoz FNP-C is PHCP. snw 15:07 Renard Gimenez MD is Attending Physician. snw 15:14 Cortes Joe, MARIA DEL ROSARIO is Primary Nurse. sg 15:27 Missed attempt(s): 20 gauge in right forearm. 22 gauge in right antecubital area. ms Bleeding controlled, band aid applied, catheter tip intact. 15:40 Initial lab(s) drawn, by me, sent to lab. First set of blood cultures drawn by me. sg Inserted saline lock: 22 gauge in left antecubital area, using aseptic technique. Blood collected. 15:43 XRAY Chest (1 view) In Process Unspecified. EDMS 16:00 Patient has correct armband on for positive identification. Bed in low position. Call sg light in reach. Side rails up X2. Pulse ox on. NIBP on. Warm blanket given. Head of bed elevated. 16:00 Second set of blood cultures drawn by me. sg 17:29 CT Abd/Pelvis - PO and IV Contrast In Process Unspecified. EDMS 19:09 PHCP role handed off by Nanda Muñoz FNP-C jr8 19:09 Estuardo Dupree PA is PHCP. jr8 19:47 US Transvaginal Study (Probe) In Process Unspecified. EDMS 19:50 Basic Metabolic Panel Sent. jp3 19:53 Ultrasound completed. Patient tolerated well. sg3 20:28 Maria Esther Chavez MD is Referral Physician. jr8 21:55 No provider procedures requiring assistance completed. IV discontinued, intact, rr5 bleeding controlled, No redness/swelling at site. Pressure dressing applied. Administered Medications: 15:47 Drug: fentaNYL (PF) 50 mcg Route: IVP; Site: left antecubital; sg 16:20 Follow up: Response: No adverse reaction; Pain is unchanged, physician notified sg 15:48 Drug: NS 0.9% 1000 ml Route: IV; Rate: 125 ml/hr; Site: left antecubital; sg 16:09 Drug: LevaQUIN 500 mg Volume: 100 ml; Route: IVPB; Infused Over: 60 mins; Site: left sg antecubital; 17:15 Follow up: Response: No adverse reaction; IV Status: Completed infusion sg 16:10 Not Given (Other Intervention Used): LevaQUIN 500 mg PO once sg 16:31 Drug: Demerol 25 mg Route: IVP; Site: left antecubital; sg 17:00 Follow up: Response: No adverse reaction; Pain is decreased sg 18:25 Drug: Simethicone 120 mg Route: PO; sg 18:52 Follow up: Response: No adverse reaction sg 18:25 Drug: Valium 10 mg Route: PO; sg 18:52 Follow up: Response: No adverse reaction sg 20:03 Drug: Decadron - Dexamethasone 10 mg Route: IVP; Site: left antecubital; rr5 21:00 Follow up: Response: No adverse reaction rr5 20:05 Dru grams of (Robaxin 1 grams, NS 0.9% 100 ml) Route: IVPB; Infused Over: 1 hrs; rr5 Site: left antecubital; 21:05 Follow up: Response: No adverse reaction; IV Status: Completed infusion; IV Intake: rr5 100ml 20:08 Drug: TORadol - Ketorolac 15 mg Route: IVP; Site: left antecubital; rr5 21:10 Follow up: Response: No adverse reaction rr5 21:27 Drug: Dilaudid 1 mg Route: IVP; Site: left antecubital; rr5 22:00 Follow up: Response: No adverse reaction rr5 Intake: 21:05 IV: 100ml; Total: 100ml. rr5 Outcome: 20:28 Discharge ordered by . jrAnu 21:55 Discharged to home ambulatory, with family. rr5 21:55 Condition: stable 21:55 Discharge instructions given to patient, Instructed on discharge instructions, follow up and referral plans. medication usage, Demonstrated understanding of instructions, follow-up care, medications, Prescriptions given X 2. 21:59 Patient left the ED. rr5 Signatures: Dispatcher [employer] EDMS Cortes Joe, RN RN sg Nanda Muñoz, FAMILY RESOURCE COORDINATOR-C FAMILY RESOURCE COORDINATOR-Csnw Madison Duque mr Juventino, Yennifer ms Estuardo Dupree PA PA jr8 Coy Giang RN RN Lala De Anda sg3 Krzysztof Keyes jp3 Torrey Rosa, MARIA DEL ROSARIO RN rr5 Corrections: (The following items were deleted from the chart) 14:43 14:41 Pulse 77bpm; Resp 18bpm; Pulse Ox 98% RA; Temp 98.3F Temporal; 95.25 kg; Height 5 hj ft. 2 in.; BMI: 38.4; Pain 9/10; hj 19:24 19:15 Pain: Complains of pain in back Pain does not radiate. Pain Quality of pain is rr5 described as aching, Pain began gradually, Is intermittent, rr5
--- NOTE | 2019-01-07 20:30 | EDPHYS ---
Physician Documentation [facility] Name: Audra Limon Age: 53 yrs Sex: Female : 1965 Arrival Date: 01/07/2019 Time: 14:38 Bed 15 Private MD: ED Physician Renard Gimenez HPI: 01/07 16:30 This 53 yrs old Female presents to ER via Ambulatory with complaints of Back snw Pain. 16:30 The patient presents with pain that is acute. The symptoms are located in the low back. snw Onset: The symptoms/episode began/occurred suddenly, 3 day(s) ago. The pain does not radiate. The problem was sustained post some yardwork. Severity of symptoms: At their worst the symptoms were moderate. It is unknown whether or not the patient has had similar symptoms in the past. The patient has not recently seen a physician. . Historical: - Allergies: 14:41 PENICILLINS; hj - PMHx: 14:41 CAD; Depression; Diabetes - NIDDM; GERD; High Cholesterol; Hypertension; hj - PSHx: 14:41 Tubal ligation; Bladder suspension; Cholecystectomy; neck surg; hj ROS: 16:30 Constitutional: Negative for fever, chills, and weight loss, Eyes: Negative for injury, snw pain, redness, and discharge, ENT: Negative for injury, pain, and discharge, Neck: Negative for injury, pain, and swelling, Cardiovascular: Negative for chest pain, palpitations, and edema, Respiratory: Negative for shortness of breath, cough, wheezing, and pleuritic chest pain, Abdomen/GI: Negative for abdominal pain, nausea, vomiting, diarrhea, and constipation, : Negative for injury, bleeding, discharge, and swelling, MS/Extremity: Negative for injury and deformity, Skin: Negative for injury, rash, and discoloration, Neuro: Negative for headache, weakness, numbness, tingling, and seizure, Psych: Negative for depression, anxiety, suicide ideation, homicidal ideation, and hallucinations. 16:30 Back: Positive for pain at rest, pain with movement, of the left low back. Exam: 15:23 Head/Face: Normocephalic, atraumatic. Eyes: Pupils equal round and reactive to light, snw extra-ocular motions intact. Lids and lashes normal. Conjunctiva and sclera are non-icteric and not injected. Cornea within normal limits. Periorbital areas with no swelling, redness, or edema. ENT: Nares patent. No nasal discharge, no septal abnormalities noted. Tympanic membranes are normal and external auditory canals are clear. Oropharynx with no redness, swelling, or masses, exudates, or evidence of obstruction, uvula midline. Mucous membranes moist. Neck: Trachea midline, no thyromegaly or masses palpated, and no cervical lymphadenopathy. Supple, full range of motion without nuchal rigidity, or vertebral point tenderness. No Meningismus. Chest/axilla: Normal chest wall appearance and motion. Nontender with no deformity. No lesions are appreciated. Cardiovascular: Regular rate and rhythm with a normal S1 and S2. No gallops, murmurs, or rubs. Normal PMI, no JVD. No pulse deficits. Respiratory: Lungs have equal breath sounds bilaterally, clear to auscultation and percussion. No rales, rhonchi or wheezes noted. No increased work of breathing, no retractions or nasal flaring. 15:23 Skin: Warm, dry with normal turgor. Normal color with no rashes, no lesions, and no evidence of cellulitis. MS/ Extremity: Pulses equal, no cyanosis. Neurovascular intact. Full, normal range of motion. Neuro: Awake and alert, GCS 15, oriented to person, place, time, and situation. Cranial nerves II-XII grossly intact. Motor strength 5/5 in all extremities. Sensory grossly intact. Cerebellar exam normal. Normal gait. Psych: Awake, alert, with orientation to person, place and time. Behavior, mood, and affect are within normal limits. 15:23 Constitutional: The patient appears alert, awake, anxious, obese. 15:23 Abdomen/GI: Inspection: abdomen appears normal, Bowel sounds: normal, Palpation: moderate abdominal tenderness, in the left lower quadrant. 15:23 Back: pain, that is moderate, of the left low back, ROM is normal, normal spinal alignment noted, CVA tenderness, is absent, vertebral tenderness, is not appreciated. Vital Signs: 14:41 BP 195 / 100; Pulse 77; Resp 18; Temp 98.3(TE); Pulse Ox 98% on R/A; Weight 95.25 kg; hj Height 5 ft. 2 in. (157.48 cm); Pain 9/10; 16:31 BP 172 / 89; Pulse 70; Resp 17; Pulse Ox 98% on R/A; sg 18:00 BP 162 / 92; Pulse 76; Resp 17; Pulse Ox 99% on R/A; sg 19:00 BP 160 / 90; Pulse 75; Resp 17; Temp 98.1; Pulse Ox 99% ; rr5 20:00 BP 188 / 101; Pulse 81; Resp 19; Pulse Ox 100% ; Pain 10/10; rr5 21:25 BP 166 / 108; Pulse 85; Resp 17; Pulse Ox 99% ; Pain 9/10; rr5 21:55 BP 171 / 98; Pulse 80; Resp 17; Pulse Ox 100% ; Pain 4/10; rr5 14:41 Body Mass Index 38.41 (95.25 kg, 157.48 cm) hj 21:55 due HTN medication taken by the patient 2130H. ED provider aware. rr5 MDM: 15:11 Patient medically screened. snw 18:32 Data reviewed: vital signs, nurses notes, lab test result(s), EKG, radiologic studies, snw CT scan. Data interpreted: Pulse oximetry: on room air is 98 %. Interpretation: normal. Counseling: I had a detailed discussion with the patient and/or guardian regarding: the historical points, exam findings, and any diagnostic results supporting the discharge/admit diagnosis, the presence of at least one elevated blood pressure reading (>120/80) during this emergency department visit, lab results, radiology results, the need for outpatient follow up, for definitive care. Response to treatment: the patient's symptoms have mildly improved after treatment. Special discussion: Based on the patient's Hx, exam, and Dx evaluation, there is no indication for emergent surgery or inpatient Tx. It is understood by the patient/guardian that if the Sx's persist or worsen they need to return immediately for re-evaluation. I have referred the patient to see his PCP for further evaluation of high blood pressure. ED course: Pt has seemingly unrelated findings based on chief complaint. States numb but painful left posterior hip area with radiation not down buttock or anterior leg but around and medially to groin/pubis. CT findings with 6cm fluid collection in cul-d-sac. Pt states she is not surprised by CT findings of dilated bowel loops and states she has chronic diarrhea. Abnormal bone growth at left hip is probably not cause of acute pain. Will US to better view 6cm fluid collection and have pt f/u with PCP and [employer] [employer] [facility]ist surgery.. 19:09 Transition of care: After a detail discussion of the patient's case, care is snw transferred to Estuardo DELA CRUZ. 01/07 15:00 Order name: Urine Dipstick--Ancillary (enter results); Complete Time: 15:24 eb 01/07 15:23 Order name: Basic Metabolic Panel snw 01/07 15:23 Order name: CBC with Diff; Complete Time: 16:04 snw 01/07 15:23 Order name: LFT's; Complete Time: 16:21 snw 01/07 15:23 Order name: Magnesium; Complete Time: 16:21 snw 01/07 15:23 Order name: NT PRO-BNP; Complete Time: 16:21 snw 01/07 15:23 Order name: PT-INR; Complete Time: 16:04 snw 01/07 15:23 Order name: Troponin (emerg Dept Use Only); Complete Time: 16:21 snw 01/07 15:23 Order name: XRAY Chest (1 view); Complete Time: 17:59 snw 01/07 15:23 Order name: CT Abd/Pelvis - PO and IV Contrast; Complete Time: 17:59 snw 01/07 15:23 Order name: Blood Culture Adult (2) w 01/07 15:24 Order name: Basic Metabolic Panel; Complete Time: 16:21 EDMS 01/07 15:24 Order name: Guiac; Complete Time: 15:54 snw 01/07 18:16 Order name: US Transvaginal Study (Probe); Complete Time: 20:28 snw 01/07 15:23 Order name: EKG; Complete Time: 15:24 snw 01/07 15:23 Order name: Cardiac monitoring; Complete Time: 15:47 snw 01/07 15:23 Order name: EKG - Nurse/Tech; Complete Time: 16:46 snw 01/07 15:23 Order name: IV Saline Lock; Complete Time: 15:48 snw 01/07 15:23 Order name: Labs collected and sent; Complete Time: 15:48 snw 01/07 15:23 Order name: O2 Per Protocol; Complete Time: 15:48 snw 01/07 15:23 Order name: O2 Sat Monitoring; Complete Time: 15:48 snw 03 15:23 Order name: NPO; Complete Time: 15:48 snw 03 16:22 Order name: Recheck VS; Complete Time: 16:36 snw Administered Medications: 15:47 Drug: fentaNYL (PF) 50 mcg Route: IVP; Site: left antecubital; sg 16:20 Follow up: Response: No adverse reaction; Pain is unchanged, physician notified sg 15:48 Drug: NS 0.9% 1000 ml Route: IV; Rate: 125 ml/hr; Site: left antecubital; sg 16:09 Drug: LevaQUIN 500 mg Volume: 100 ml; Route: IVPB; Infused Over: 60 mins; Site: left sg antecubital; 17:15 Follow up: Response: No adverse reaction; IV Status: Completed infusion sg 16:10 Not Given (Other Intervention Used): LevaQUIN 500 mg PO once sg 16:31 Drug: Demerol 25 mg Route: IVP; Site: left antecubital; sg 17:00 Follow up: Response: No adverse reaction; Pain is decreased sg 18:25 Drug: Simethicone 120 mg Route: PO; sg 18:52 Follow up: Response: No adverse reaction sg 18:25 Drug: Valium 10 mg Route: PO; sg 18:52 Follow up: Response: No adverse reaction sg 20:03 Drug: Decadron - Dexamethasone 10 mg Route: IVP; Site: left antecubital; rr5 21:00 Follow up: Response: No adverse reaction rr5 20:05 Dru grams of (Robaxin 1 grams, NS 0.9% 100 ml) Route: IVPB; Infused Over: 1 hrs; rr5 Site: left antecubital; 21:05 Follow up: Response: No adverse reaction; IV Status: Completed infusion; IV Intake: rr5 100ml 20:08 Drug: TORadol - Ketorolac 15 mg Route: IVP; Site: left antecubital; rr5 21:10 Follow up: Response: No adverse reaction rr5 21:27 Drug: Dilaudid 1 mg Route: IVP; Site: left antecubital; rr5 22:00 Follow up: Response: No adverse reaction rr5 Disposition: 01/08 07:06 Co-signature as Attending Physician, Renard Gimenez MD. rn Disposition: 01/07/19 20:28 Discharged to Home. Impression: Diarrhea, unspecified, Pain in left hip, Pain localized to other parts of lower abdomen. - Condition is Stable. - Discharge Instructions: Abdominal Pain, Adult, Chronic Diarrhea, Hip Pain. - Prescriptions for Mobic 7.5 mg Oral Tablet - take 1 tablet by ORAL route once daily take with food; 20 tablet. Cyclobenzaprine 10 mg Oral Tablet - take 1 tablet by ORAL route every 8 hours As needed; 30 tablet. - Medication Reconciliation Form, Thank You Letter, Antibiotic Education, Prescription Opioid Use form. - Follow up: Private Physician; When: 2 - 3 days; Reason: Recheck today's complaints, Continuance of care, Re-evaluation by your physician. Follow up: Emergency Department; When: As needed; Reason: Worsening of condition. Follow up: Maria Esther Chavez; When: 5 - 6 days; Reason: Recheck today's complaints, Continuance of care. Signatures: Dispatcher [employer] EDMS Cortes Joe, RN RN sg Nanda Muñoz, LINE REPAIRER-C LINE REPAIRER-Csnw Renard Gimenez MD MD rn Roszak, Josh, PA PA [id number] Coy Giang RN RN Torrey Rosa RN RN rr5 Corrections: (The following items were deleted from the chart) 01/07 21:59 20:28 01/07/2019 20:28 Discharged to Home. Impression: Diarrhea, unspecified; Pain in rr5 left hip; Pain localized to other parts of lower abdomen. Condition is Stable. Discharge Instructions: Abdominal Pain, Adult, Chronic Diarrhea, Hip Pain. Prescriptions for Mobic 7.5 mg Oral Tablet - take 1 tablet by ORAL route once daily take with food; 20 tablet, Cyclobenzaprine 10 mg Oral Tablet - take 1 tablet by ORAL route every 8 hours As needed; 30 tablet. and Forms are Medication Reconciliation Form, Thank You Letter, Antibiotic Education, Prescription Opioid Use. Follow up: Private Physician; When: 2 - 3 days; Reason: Recheck today's complaints, Continuance of care, Re-evaluation by your physician. Follow up: Emergency Department; When: As needed; Reason: Worsening of condition. Follow up: Maria Estehr Chavez; When: 5 - 6 days; Reason: Recheck today's complaints, Continuance of care. jr8
[2019-01-07] MEDS ORDERED: HYDROMORPHONE HCL 1 MG/ML INJ ONE (21:15)
[2019-01-07 22:08] VITALS: TEMP 98.1
[2019-01-07 22:11] VITALS: BP 166/108; O2SAT 99
--- NOTE | 2019-01-09 07:47 | EKG ---
Test Date: 2019-01-07 Test Time: 16:22:37 Intelligence Manager: MEASUREMENT RESULTS: Intervals: Rate: 69 MT: 158 QRSD: 84 QT: 408 QTc: 437 Seeley: P: 36 MT: 158 QRS: -20 T: 58 INTERPRETIVE STATEMENTS: Normal sinus rhythm Normal ECG Compared to ECG 02/07/2018 20:49:42 No significant changes Electronically Signed On 01-09-19 07:45:20 CDT by Vin Dodd
== END 2019-01-07 21:59 | disposition home or self-care (01) ==
LOC: ER 14:34
DX: R19.7 Diarrhea, unspecified (principal); M25.552 Pain in left hip; R10.30 Lower abdominal pain, unspecified; I10 Essential (primary) hypertension; Z88.0 Allergy status to penicillin
CPT/HCPCS: 96365; 96367; 93005; 87040 ×2; 85025; 80048; 36415; 83735; 85610; 80076; 82272; 81003; 84484; 83880; 74177; 71045; 76830; 96375; 99284; Q9967; J3010; J1100; J2175; J1170; J7030; J2800

== ENCOUNTER 2024-01-05 03:05 | Emergency (ER) | payer OTHER ==
[2024-01-05 04:00] LABS: Basophils % 0.2 % (0-1.3); Eosinophils % 0.1 % (0-4.4); Hemoglobin 13.9 g/dL (12.0-15.0); MCH 30.9 pg (27.0-35.0); MPV 7.2 fL (7.6-11.3); RBC Red Blood Cell Count 4.49 M/uL (3.86-4.86)
[2024-01-05 04:06] LABS: Absolute Monocytes 0.3 K/uL (0.1-1.3); Absolute Neutrophil 6.3 K/uL (1.8-8.0); Hematocrit 41.6 % (36.0-45.0); Lymphocytes % 13.5 % (15.3-44.8); MCHC 33.4 g/dL (32.0-36.0); MCV 92.6 fL (80-100); Monocytes % 3.5 % (3.3-12.3); Neutrophils % 82.7 % (41.7-73.7); Nucleated Red Blood Cells % 0.1 % (0-0); Platelets 237 thou/uL (152-406); Red Cell Distribution Width 13.7 % (12.1-15.2)
[2024-01-05 04:11] LABS: Albumin 4.2 g/dL (3.4-5.0); Albumin/Globulin Ratio 1.4 (1.1-1.8); Anion Gap 8.4 mEq/L (5.0-15.0); Bilirubin Total 1.2 mg/dL (0.2-1.0); Globulin 3.1 g/dL (2.3-3.5); Potassium 3.4 mEq/L (3.5-5.1); Protein, Total 7.3 g/dL (6.4-8.2)
[2024-01-05 04:17] LABS: Specific Gravity 1.012 (1.005-1.030); Urine Clarity Extremely Turbid (Clear); Urine Color Colorless (Yellow)
[2024-01-05 04:18] LABS: Sqamous Epithelial None Seen /HPF (None Seen); Urine Bacteria None Seen /HPF (<20); Urine Bilirubin NEGATIVE (Negative); Urine Blood Negative (Negative); Urine Culture Reflex Order NOT NEEDED; Urine Glucose NEGATIVE (Negative); Urine Ketones NEGATIVE (Negative); Urine Micro Reflex YN NO BILL MICROSCOPIC; Urine Nitrite NEGATIVE (Negative); Urine Protein NEGATIVE (Negative); Urine RBC None Seen /HPF (None Seen); Urine Urobilinogen Normal (Normal); Urine WBC None Seen /HPF (<5)
--- NOTE | 2024-01-05 05:35 | EDPHYS ---
Physician Documentation [facility] Name: Audra Limon Age: 58 yrs Sex: Female : 1965 Arrival Date: 01/05/2024 Time: 03:05 Bed 6 Private MD: ED Physician Jim Ventura HPI: 01/04 03:31 This 58 yrs old Female presents to ER via Ambulatory with complaints of ec2 Abdominal Pain. 03:31 Patient arrives today for right-sided abdominal pain. Reports she has been having pain ec2 since approximately 12 hours ago with no specific alleviating or exacerbating factors, also with complaints of nausea, no issues with vomiting. Previous history of cholecystectomy, previous tubal ligation. Historical: - Allergies: 03:25 PENICILLINS; bm8 - Home Meds: 03:25 Lasix 40 mg Oral tab 1 tab once daily [Active]; losartan 50 mg Oral tab 1 tab 2 times bm8 per day [Active]; pantoprazole 40 mg Oral TbEC 1 tab once daily [Active]; amlodipine oral [Active]; - PMHx: 03:25 CAD; Depression; Diabetes - NIDDM; GERD; High Cholesterol; Hypertension; bm8 - PSHx: 03:25 hernia repair (Hypertension); Tonsillectomy; tubal ligation; neck; Left hand; bm8 - Immunization history:: Adult Immunizations up to date. - Infectious Disease History:: Denies. - Social history:: Smoking status: Patient denies any tobacco usage or history of. Patient uses alcohol, Patient/guardian denies using street drugs. ROS: 03:31 Constitutional: as per hpi ec2 Exam: 03: Constitutional: GEN: NAD Head: atraumatic Eyes: EOMI Ears: External ears are ec2 normal. CV: regular rate LUNGS: no respiratory distress ABD: non-distended, soft, not guarding, not rigid, tender in the right lower abdomen SKIN: no evidence of rashes MSK: no evidence of trauma NEURO: moves all extremities equally Vital Signs: 03:23 BP 170 / 95; Pulse 88; Resp 17; Temp 98.1; Pulse Ox 98% ; Weight 70.31 kg; Height 5 ft. bm8 2 in. ; Pain 8/10; 05:02 BP 145 / 87; Pulse 90; Resp 19; Pulse Ox 95% on R/A; kd3 06:00 BP 138 / 84; Pulse 81; Resp 17; Temp 98.1; Pulse Ox 96% ; Pain 0/10; bm8 03:23 Body Mass Index 28.35 (70.31 kg, 157.48 cm) bm8 03:23 Pain Scale: Adult bm8 06:00 Pain Scale: Adult bm8 Darshana Coma Score: 06:00 Eye Response: spontaneous(4). Motor Response: obeys commands(6). Verbal Response: bm8 oriented(5). Total: 15. MDM: 03:24 Patient medically screened. ec2 03:31 Data reviewed: vital signs. ED course: Patient arrives today for right-sided abdominal ec2 pain. Examination remarkable for well-appearing nontoxic and appears otherwise in no acute distress with reassuring examination. Will obtain lab work and CT imaging due to patient pain. Differential diagnosis include process such as ureteral stone, appendicitis, UTI. . 04:55 ED course: CBC reassuring, metabolic profile shows slight hypokalemia with potassium of ec2 3.4. Urine is noninfectious appearing. Lipase within normal ranges. Pending CT imaging. . 05:31 ED course: CT abdomen pelvis shows likely enteritis. . ec2 05:31 ED course: On reassessment patient is well-appearing in no acute distress. Will ec2 discharge home have follow-up primary care. Return precautions given . 05:35 ED course: MDM: Differential diagnosis as documented above in ED course; All lab tests ec2 ordered and reviewed as documented above; Parenteral controlled substances: Yes; . 01/04 03:31 Order name: CBC with Diff; Complete Time: 04:55 ec2 01/04 03:31 Order name: CMP; Complete Time: 04:55 ec2 01/04 03:31 Order name: Lipase; Complete Time: 04:55 ec2 01/04 03:41 Order name: UAM; Complete Time: 04:55 bm8 01/04 03:31 Order name: CT Abd/Pelvis - Without Contrast ec2 01/04 03:31 Order name: IV Saline Lock; Complete Time: 03:40 ec2 01/04 03:31 Order name: Labs collected and sent; Complete Time: 03:40 ec2 Administered Medications: 03:40 Drug: NS 0.9% IV 1000 ml IV at 1 bolus Per protocol; 1000 mL bolus Route: IV; Rate: 1 bm8 bolus; Site: right antecubital; 06:06 Follow up: Response: No adverse reaction; IV Status: Completed infusion; IV Intake: bm8 1000ml 03:40 Drug: TORadol - Ketorolac IVP 15 mg IVP once Route: IVP; Site: right antecubital; bm8 06:06 Follow up: Response: No adverse reaction bm8 03:40 Drug: Ondansetron IVP 4 mg IVP once; over 2 minutes Route: IVP; Site: right antecubital;bm8 06:06 Follow up: Response: No adverse reaction bm8 03:40 Drug: morphine IVP or IV 4 mg IVP once over 4 mins Route: IVP; Infused Over: 4 mins; bm8 Site: right antecubital; 06:07 Follow up: Response: No adverse reaction bm8 Disposition Summary: 01/05/24 05:34 Discharge Ordered Notes: Location: Home ec2 Condition: Stable ec2 Diagnosis - Hypokalemia ec2 - Abdominal pain, unspecified ec2 - Infectious gastroenteritis and colitis, unspecified ec2 Followup: ec2 - With: Private Physician - When: - Reason: Re-evaluation by your physician Discharge Instructions: - Discharge Summary Sheet ec2 - Abdominal Pain, Adult ec2 Forms: - Medication Reconciliation Form ec2 - Antibiotic Education ec2 - Prescription Opioid Use ec2 - Patient Portal Instructions ec2 - Leadership Thank You Letter ec2 Prescriptions: - Zofran 4 mg Oral Tablet - take 1 tablet ORAL route every 12 hours As needed; 20 tablet; Refills: 0, ec2 Product Selection Permitted Signatures: Dispatcher [employer] Jim Mckenzie MD MD ec2 John Hussein RN RN bm8
--- NOTE | 2024-01-05 05:35 | ER ---
Nurse's Notes [facility] Name: Audra Limon Age: 58 yrs Sex: Female : 1965 Arrival Date: 01/05/2024 Time: 03:05 Bed 6 Private MD: Diagnosis: Hypokalemia;Abdominal pain, unspecified;Infectious gastroenteritis and colitis, unspecified Presentation: 01/04 03:23 Chief complaint: Patient states: pt reports right sided abd pain that began at 1500 bm8 yesterday afternoon. Coronavirus screen: Vaccine status: Patient reports receiving the 2nd dose of the covid vaccine. At this time, the client does not indicate any symptoms associated with coronavirus-19. Ebola Screen: Patient negative for fever greater than or equal to 101.5 degrees Fahrenheit, and additional compatible Ebola Virus Disease symptoms Patient denies exposure to infectious person. Patient denies travel to an Ebola-affected area in the 21 days before illness onset. No symptoms or risks identified at this time. Initial Sepsis Screen: Does the patient meet any 2 criteria? No. Patient's initial sepsis screen is negative. Does the patient have a suspected source of infection? No. Patient's initial sepsis screen is negative. Risk Assessment: Do you want to hurt yourself or someone else? Patient reports no desire to harm self or others. Onset of symptoms was January 04, 2024 at 15:00. 03:23 Method Of Arrival: Ambulatory bm8 03:23 Acuity: SUJATA 3 bm8 Triage Assessment: 03:25 General: Appears in no apparent distress. uncomfortable, Behavior is calm, cooperative, bm8 appropriate for age. Pain: Complains of pain in suprapubic area, right upper quadrant and right lower quadrant Pain does not radiate. Pain currently is 8 out of 10 on a pain scale. Quality of pain is described as aching, dull, bloated, full. EENT: No signs and/or symptoms were reported regarding the EENT system. Neuro: No deficits noted. Level of Consciousness is awake, alert, obeys commands, Oriented to person, place, time, situation, Appropriate for age. Cardiovascular: Denies chest pain, Capillary refill < 3 seconds Patient's skin is warm and dry. Respiratory: Airway is patent Respiratory effort is even, unlabored, Respiratory pattern is regular, symmetrical. GI: Abdomen is round distended, Bowel sounds diminished in right upper quadrant and right lower quadrant Abdomen is tender to palpation in right upper quadrant and right lower quadrant Reports nausea, Pain is 8 out of 10 on a pain scale. : No signs and/or symptoms were reported regarding the genitourinary system. Urine is cloudy. Derm: No signs and/or symptoms reported regarding the dermatologic system. Musculoskeletal: No signs and/or symptoms reported regarding the musculoskeletal system. Historical: - Allergies: 03:25 PENICILLINS; bm8 - Home Meds: 03:25 Lasix 40 mg Oral tab 1 tab once daily [Active]; losartan 50 mg Oral tab 1 tab 2 times bm8 per day [Active]; pantoprazole 40 mg Oral TbEC 1 tab once daily [Active]; amlodipine oral [Active]; - PMHx: 03:25 CAD; Depression; Diabetes - NIDDM; GERD; High Cholesterol; Hypertension; bm8 - PSHx: 03:25 hernia repair (Hypertension); Tonsillectomy; tubal ligation; neck; Left hand; bm8 - Immunization history:: Adult Immunizations up to date. - Infectious Disease History:: Denies. - Social history:: Smoking status: Patient denies any tobacco usage or history of. Patient uses alcohol, Patient/guardian denies using street drugs. Screenin:30 [facility] ED Fall Risk Assessment (Adult) History of falling in the last 3 months, bm8 including since admission No falls in past 3 months (0 pts) Confusion or Disorientation No (0 pts) Intoxicated or Sedated No (0 pts) Impaired Gait No (0 pts) Mobility Assist Device Used No (0 pt) Altered Elimination No (0 pt) Score/Fall Risk Level 0 - 2 = Low Risk Oriented to surroundings, Maintained a safe environment, Educated pt \T\ family on fall prevention, incl call for assistance when getting out of bed, Assessed \T\ reinforced patient's understanding of fall precautions, Hourly rounding (assess needs \T\ fall precautionary measures) done, Used ambulatory aids as needed (educated on \T\ assisted with). Abuse screen: Denies threats or abuse. Nutritional screening: No deficits noted. Tuberculosis screening: No symptoms or risk factors identified. Assessment: 06:00 Reassessment: Patient appears in no apparent distress at this time. Patient and/or bm8 family updated on plan of care and expected duration. Pain level reassessed. Patient is alert, oriented x 3, equal unlabored respirations, skin warm/dry/pink. Patient denies pain at this time. Patient states feeling better. Patient states symptoms have improved. Vital Signs: 03:23 BP 170 / 95; Pulse 88; Resp 17; Temp 98.1; Pulse Ox 98% ; Weight 70.31 kg; Height 5 ft. bm8 2 in. ; Pain 8/10; 05:02 BP 145 / 87; Pulse 90; Resp 19; Pulse Ox 95% on R/A; kd3 06:00 BP 138 / 84; Pulse 81; Resp 17; Temp 98.1; Pulse Ox 96% ; Pain 0/10; bm8 03:23 Body Mass Index 28.35 (70.31 kg, 157.48 cm) bm8 03:23 Pain Scale: Adult bm8 06:00 Pain Scale: Adult bm8 Lincoln Coma Score: 06:00 Eye Response: spontaneous(4). Motor Response: obeys commands(6). Verbal Response: bm8 oriented(5). Total: 15. ED Course: 03:08 Patient arrived in ED. [email or web address] 03:13 Jim Ventura MD is Attending Physician. ec2 03:23 John Hussein, RN is Primary Nurse. bm8 03:25 Triage completed. bm8 03:25 Arm band placed on right wrist. bm8 03:30 Patient has correct armband on for positive identification. Call light in reach. Side bm8 rails up X 1. Adult w/ patient. Client placed on continuous cardiac and pulse oximetry monitoring. NIBP monitoring applied. Pulse ox on. NIBP on. Door closed. Noise minimized. Warm blanket given. Verbal reassurance given. Head of bed. 03:30 No provider procedures requiring assistance completed. bm8 03:37 Inserted saline lock: 20 gauge in right antecubital area, using aseptic technique. oe Blood collected. Flushed with 10 mL NS. 04:16 CT Abd/Pelvis - Without Contrast In Process Unspecified. EDMS 05:41 Provided Education on: zofran . kd3 05:41 IV discontinued, intact, bleeding controlled, No redness/swelling at site. Pressure kd3 dressing applied. Administered Medications: 03:40 Drug: NS 0.9% IV 1000 ml IV at 1 bolus Per protocol; 1000 mL bolus Route: IV; Rate: 1 bm8 bolus; Site: right antecubital; 06:06 Follow up: Response: No adverse reaction; IV Status: Completed infusion; IV Intake: bm8 1000ml 03:40 Drug: TORadol - Ketorolac IVP 15 mg IVP once Route: IVP; Site: right antecubital; bm8 06:06 Follow up: Response: No adverse reaction bm8 03:40 Drug: Ondansetron IVP 4 mg IVP once; over 2 minutes Route: IVP; Site: right antecubital;bm8 06:06 Follow up: Response: No adverse reaction bm8 03:40 Drug: morphine IVP or IV 4 mg IVP once over 4 mins Route: IVP; Infused Over: 4 mins; bm8 Site: right antecubital; 06:07 Follow up: Response: No adverse reaction bm8 Medication: 06:00 VIS not applicable for this client. bm8 Intake: 06:06 IV: 1000ml; Total: 1000ml. bm8 Outcome: 05:34 Discharge ordered by . [email or web address] 05:40 Discharged to home ambulatory, with family, kd3 05:40 Condition: stable 05:40 Discharge instructions given to patient, family, Instructed on discharge instructions, follow up and referral plans. medication usage, Demonstrated understanding of instructions, follow-up care, medications, Prescriptions given X 1, 06:03 Patient left the ED. bm8 Signatures: Dispatcher [employer] [facility] Herberth Rees Jennifer [email or web address] Janay Otero RN RN kd3 Jim Ventura MD MD ec2 John Hussein RN RN bm8
[2024-01-05 13:22] VITALS: TEMP 98.1
[2024-01-05 13:27] VITALS: BP 145/87; O2SAT 95
--- NOTE | 2024-01-05 23:13 | RAD REPORT ---
EXAM DESCRIPTION: CT - Abdomen Pelvis Wo Contrast - 01/05/2024 6:45 am CLINICAL HISTORY: Abdominal pain COMPARISON: CT abdomen and pelvis 01/07/2019 TECHNIQUE: CT images of the abdomen and pelvis obtained without contrast. Multiplanar reformats were provided. Dose-optimization techniques such as automated exposure control, iterative reconstruction, and mA and/or kV adjustment for patient size was utilized for this examination. FINDINGS: LOWER CHEST: Unremarkable. LIVER: Unremarkable. BILIARY: Status post cholecystectomy with surgical clips at gallbladder fossa. Molar prominent comm on bile duct may be related to postcholecystectomy status. PANCREAS: Unremarkable. SPLEEN: Unremarkable. ADRENALS: Unremarkable. KIDNEYS/URETERS: Unremarkable. BOWEL/STOMACH: Multiple small bowel loops are gas distended with prominence mucosal folds. No definit e focal transition point of the caliber change. Findings possibly reflect ileus and are suspicious fo r mild enteritis. Moderate colonic stool burden in colon. Appendix is not identified. No focal inflam mation to suggest acute appendicitis. MESENTERY/PERITONEUM: No free fluid or free air. No focal collection. LYMPH NODES: Unremarkable. URINARY BLADDER: Unremarkable. REPRODUCTIVE: Unremarkable. VASCULAR: No aortic aneurysm. ABDOMINAL/PELVIC WALL: Unremarkable. BONES: No acute findings. Dystrophic calcifications near greater trochanter of bilateral proximal fem ur. No compression deformity, nor osteolytic or sclerotic lesion. IMPRESSION: Multiple small bowel loops are gas distended with prominence mucosal folds. No definite focal transition point of the caliber change. Findings possibly reflect ileus and suspicious for mild enteritis. Electronically signed by: Rocio Dailey MD 01/05/2024 05:25 AM CDT Due to temporary technical issues with the PACS/Fluency reporting system, reports are being signed by the in house radiologists without review as a courtesy to insure prompt reporting. The interpreting radiologist is fully responsible for the content of the report.
== END 2024-01-05 06:03 | disposition home or self-care (01) ==
LOC: ER 03:05
DX: E87.6 Hypokalemia (principal); A09 Infectious gastroenteritis and colitis, unspecified; R10.31 Right lower quadrant pain
CPT/HCPCS: 36415; 74176; 80053; 81001; 83690; 85025; 96361; 96374; 96375; 99284